=== PATIENT | female | born 1985 | race Caucasian/White ===

== ENCOUNTER → 2017-01-31 | Outpatient (CLI) | payer BC | LOC: MW.CHOBGYN 17:04 | PROVIDERS: ATTEND Obstetrics & Gynecology | DX: Z34.90 Encounter for supervision of normal pregnancy, unspecified, unspecified trimester (principal) | CPT/HCPCS: 87081 ==

== ENCOUNTER 2017-02-11 16:13 | Outpatient (CLI) | payer BC ==
--- NOTE | 2017-02-14 15:09 | US ---
EXAM DATE: 02/11/17 PATIENT'S AGE: 31 Patient: ALEXANDRA CARRILLO Facility: [place], [place] Site . Site : 1985 Study: US OB Pelvis [id number]/24/2017 5:14:57 PM Ordering Physician: Chichi Colón Final Report: INDICATION: Lagging fundal height. LIMITED OBSTETRICAL ULTRASOUND Comparison: No previous comparison studies are currently available. Findings: Dr. Cadet was present during the exam. There is a single, live, intrauterine gestation in cephalic position. cardiac activity is present with a heart rate of 149 BPM. Amniotic fluid volume appears subjectively normal and the amniotic fluid index measures 8.4 cm. measurements show: BPD 9.2 centimeters, 37 weeks 4 days. HC 32.6 centimeters, 37 weeks 1 day. AC 33.1 centimeters, 37 weeks 0 days. FL 7.2 centimeters, 37 weeks 1 day. These measurements are concordant and yield a composite estimated menstrual age of 37 weeks 2 days which corresponds to an JAZZMINE of 03/02/2017. Estimated weight is 3111 grams. Evaluation of biophysical profile shows satisfactory breathing movements, gross body movements, tone, and amniotic fluid for a biophysical profile score of 8/8. IMPRESSION: 1. Single, live, intrauterine gestation in cephalic position with estimated menstrual age of 37 weeks 2 days and JAZZMINE of 03/02/2017. 2. Biophysical profile score is 8/8. KRZYSZTOF YUEN MD [employer] Dictated by Jovanny Yuen MD @ 02/11/2017 7:09:48 PM Dictated by: Jovanny Yuen MD @ 02/11/2017 19:10:49 (Electronic Signature) Report Signed by Proxy and Original Signed Document filed in the Medical Record. [facility]
== END 2017-02-11 17:35 | disposition home or self-care (01) ==
LOC: MW.OBCHECK 16:13 → MW.OB 16:14 → MW.OBCHECK 17:35
PROVIDERS: ATTEND Obstetrics & Gynecology
DX: O36.5930 Maternal care for other known or suspected poor fetal growth, third trimester, not applicable or unspecified (principal); Z34.90 Encounter for supervision of normal pregnancy, unspecified, unspecified trimester
CPT/HCPCS: 59025; 76818; 76818-26; 81003

== ENCOUNTER → 2017-02-11 | Outpatient (CLI) | payer BC | LOC: MW.CHOBGYN 15:39 | PROVIDERS: ATTEND Obstetrics & Gynecology | DX: Z34.90 Encounter for supervision of normal pregnancy, unspecified, unspecified trimester (principal) | CPT/HCPCS: 81003 ==

== ENCOUNTER 2017-02-15 13:35 | Outpatient (CLI) | payer BC | END 2017-02-15 14:55 | disposition home or self-care (01) | LOC: MW.OBCHECK 13:35 → MW.OB 13:37 → MW.OBCHECK 14:55 | PROVIDERS: ATTEND Obstetrics & Gynecology | DX: Z36 Encounter for antenatal screening of mother (principal) | CPT/HCPCS: 59025 ==

== ENCOUNTER 2017-02-18 00:04 | Inpatient (IN) | payer BC ==
[2017-02-18] MEDS ORDERED: Butorphanol 1 MG/ML SDV IVPUSH PRN (00:13)
[2017-02-18] MEDS ORDERED: Nalbuphine 10 MG/1 ML Vial IVPUSH PRN (00:13)
[2017-02-18] MEDS ORDERED: Misoprostol 25 MCG (1/4 of 100 MCG) Tab VAG PRN (00:13)
[2017-02-18] MEDS ORDERED: Methylergonovine 0.2 MG/1 ML Amp IM PRN (00:13)
[2017-02-18] MEDS ORDERED: Lidocaine 1% 50 ML MDV INJECT PRN (00:13)
[2017-02-18] MEDS ORDERED: Sodium Chloride 0.9% 2.5 ML Syringe FLUSH PRN (00:13)
[2017-02-18] MEDS ORDERED: Carboprost Tromethamine 250 MCG/1 ML Amp IM PRN (00:13)
[2017-02-18] MEDS ORDERED: Misoprostol 200 MCG Tab PO PRN (00:13)
[2017-02-18] MEDS ORDERED: Sodium Chloride 0.9% 10 ML Syringe FLUSH PRN (00:13)
[2017-02-18] MEDS ORDERED: Misoprostol 25 MCG (1/4 of 100 MCG) Tab PO PRN (00:13)
[2017-02-18] MEDS ORDERED: Water For Irrigation,Sterile 1,000 ML Container IRR PRN (00:13)
[2017-02-18] MEDS ORDERED: Terbutaline 1 MG/ML SDV SUBCUT PRN (00:13)
[2017-02-18] MEDS ORDERED: Misoprostol 25 MCG (1/4 of 100 MCG) Tab VAG SCH (00:15)
[2017-02-18] MEDS ORDERED: Misoprostol 25 MCG (1/4 of 100 MCG) Tab PO SCH (00:15)
[2017-02-18] MEDS ORDERED: Oxytocin/Lactated Ringers 30 UNIT/500 ML BAG IV SCH ×2 (00:15)
[2017-02-18] MEDS: Lactated Ringers 1,000 ML IV SCH ×4 (01:14→11:17)
--- NOTE | 2017-02-18 07:22 | PCM.LDHP ---
L&D History of Present Illness - General Date of Service: 02/18/17 Admit Problem/Dx: Patient Status Order with Admit Dx/Problem 02/18/17 00:13 Patient Status [ADT] Routine Admission Diagnosis/Problem Admission Diagnosis/Problem - planned 02/18/17 07:10 31 yo G1Po EDC 02/28/2017 38 4/7 wks. O-, RI, GBS neg. 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: Social & Family History - Family History Family Medical History: Noncontributory - Tobacco Use Smoking Status *Q: Never Smoker - Caffeine Use Caffeine Use: Reports: Coffee, Soda - Recreational Drug Use Recreational Drug Use: No H&P Review of Systems - Review of Systems: Review Of Systems: See Below General: Reports: no symptoms HEENT: Reports: no symptoms Pulmonary: Reports: No Symptoms Cardiovascular: Reports: no symptoms Gastrointestinal: Reports: No symptoms Genitourinary: Reports: no symptoms Musculoskeletal: Reports: no symptoms Skin: Reports: no symptoms Psychiatric: Reports: no symptoms Neurological: Reports: No Symptoms Hematologic/Lymphatic: Reports: no symptoms Immunologic: Reports: no symptoms L&D Exam - Exam Exam: See Below - Vital Signs Weight: 71.214 kg - OB Specific Contraction Intensity: Irritability movement: active Estimated Weight: 3200 - Workman Score Workman Score Cervix Position: Posterior Workman Score Consistency: Medium Workman Score Effacement: 51-70% Workman Score Dilation: 1-2 cm Workman Score 's Station: -1 ,0 Workman Score Total: 6 - Exam General: alert, oriented, cooperative HEENT: Hearing intact Lungs: Normal respiratory effort Abdomen: soft Rectal Exam: Deferred Back Exam: full range of motion Skin: warm, dry, intact Psychiatric: alert, normal affect, normal mood - Patient Data Lab Results last 24 hrs: Laboratory Results - last 24 hr 02/18/17 02/18/17 Range/Units 01:07 01:07 WBC 8.71 (4.0-11.0) K/uL RBC 3.25 L (4.30-5.90) M/uL Hgb 9.5 L (12.0-16.0) g/dL Hct 28.8 L (36.0-46.0) % MCV 88.6 (80.0-98.0) fL MCH 29.2 (27.0-32.0) pg MCHC 33.0 (31.0-37.0) g/dL RDW Std Deviation 37.8 (28.0-62.0) fl RDW Coeff of Suyapa 12 (11.0-15.0) % Plt Count 223 (150-400) K/uL MPV 9.20 (7.40-12.00) fL Blood Type O NEGATIVE Antibody Screen POSITIVE Prewarmed Antibody Srcn NEGATIVE Antibody Identification Cancelled Cold Antibody Screen POSITIVE Result Diagrams: 02/18/17 01:07 - Problem List (1) Supervision of normal IUP (intrauterine ) in primigravida SNOMED Code(s): 87216441, 362270037, 632343117, 754512418 ICD Code: Z34.00 - ENCNTR FOR SUPRVSN OF NORMAL FIRST , UNSP TRIMESTER Status: Acute Priority: High Current Visit: Yes Qualifiers: Trimester: third trimester Qualified Code(s): Z34.03 - Encounter for supervision of normal first , third trimester (2) IUGR (intrauterine growth restriction) SNOMED Code(s): 48277585 ICD Code: [id number] - Status: Acute Priority: High Current Visit: Yes Problem List Initiated/Reviewed/Updated: Yes Orders Last 24hrs: Active Orders 24 hr Category Date Time Status Patient Status [ADT] Routine ADT 02/18/17 00:13 Active Bedrest Bathroom Privileges [RC] ASDIRECTED Care 02/18/17 00:13 Active Communication Order [RC] ASDIRECTED Care 02/18/17 00:13 Active Communication Order [RC] ASDIRECTED Care 02/18/17 00:13 Active Communication Order [RC] ASDIRECTED Care 02/18/17 00:13 Active Heart Tones [RC] CONTINUOUS Care 02/18/17 00:13 Active Non Stress Test [RC] PER UNIT ROUTINE Care 02/18/17 00:13 Active May Shower [RC] ASDIRECTED Care 02/18/17 00:13 Active Notify Provider [RC] PRN Care 02/18/17 00:13 Active Notify Provider [RC] PRN Care 02/18/17 00:13 Active Notify Provider [RC] PRN Care 02/18/17 00:13 Active Notify Provider [RC] STAT Care 02/18/17 00:13 Active Oxygen Therapy [RC] ASDIRECTED Care 02/18/17 00:13 Active Up ad Patricia [RC] ASDIRECTED Care 02/18/17 00:13 Active Vaginal Exam [RC] PRN Care 02/18/17 00:13 Active Vital Signs [RC] PER UNIT ROUTINE Care 02/18/17 00:13 Active Butorphanol [Stadol] Med 02/18/17 00:13 Active 1 mg IVPUSH ASDIRECTED PRN Carboprost Tromethamine [Hemabate DS] Med 02/18/17 00:13 Active 250 mcg IM ASDIRECTED PRN Lactated Ringers [Ringers, Lactated] 1,000 ml Med 02/18/17 00:15 Active IV ASDIRECTED Lidocaine 1% [Xylocaine 1%] Med 02/18/17 00:13 Active 50 ml INJECT .ONCE PRN Methylergonovine [Methergine] Med 02/18/17 00:13 Active 0.2 mg IM ASDIRECTED PRN Misoprostol [Cytotec] Med 02/18/17 00:13 Active 200 mcg PO .ONCE PRN Misoprostol [Cytotec] Med 02/18/17 00:15 Active 25 mcg PO .ONCE Misoprostol [Cytotec] Med 02/18/17 00:13 Active 25 mcg PO Q4H PRN Misoprostol [Cytotec] Med 02/18/17 00:15 Active 25 mcg VAG .ONCE Misoprostol [Cytotec] Med 02/18/17 00:13 Active 25 mcg VAG Q4H PRN Nalbuphine [Nubain] Med 02/18/17 00:13 Active 10 mg IVPUSH ASDIRECTED PRN Oxytocin/Lactated Ringers [Pitocin in LR 30 Units/500 Med 02/18/17 00:15 Active ML] 30 unit in 500 ml IV TITRATE Sodium Chloride 0.9% [Saline Flush] Med 02/18/17 00:13 Active 10 ml FLUSH ASDIRECTED PRN Sodium Chloride 0.9% [Saline Flush] Med 02/18/17 00:13 Active 2.5 ml FLUSH ASDIRECTED PRN Terbutaline [Brethine] Med 02/18/17 00:13 Active 0.25 mg SUBCUT ASDIRECTED PRN Water For Irrigation,Sterile [Sterile Water for Med 02/18/17 00:13 Active Irrigation] 1,000 ml IRR ASDIRECTED PRN Scalp Electrode [WOMSER] Per Unit Routine Oth 02/18/17 00:13 Ordered Medication Administration Instruction [OM.PC] Q3H Oth 02/18/17 00:15 Ordered Peripheral IV Insertion Adult [OM.PC] Routine Oth 02/18/17 00:13 Ordered Resuscitation Status Routine Resus Stat 02/18/17 00:13 Ordered Medication Orders Butorphanol Tartrate (Stadol) 1 mg IVPUSH ASDIRECTED PRN PRN Reason: Pain Carboprost Tromethamine (Hemabate Ds) 250 mcg IM ASDIRECTED PRN PRN Reason: Post Hemorrhage Lactated Ringer's (Ringers, Lactated) 1,000 mls @ 150 mls/hr IV ASDIRECTED NATALIE Last Admin: 02/18/17 05:47 Dose: 150 mls/hr Infusion: 02/18/17 05:47 Dose: 150 mls/hr Admin: 02/18/17 01:14 Dose: 150 mls/hr Oxytocin/Lactated Ringer's (Pitocin In Lr 30 Units/500 Ml) 30 unit in 500 mls @ 2 mls/hr IV TITRATE NATALIE; 2 MUNITS/MIN PRN Reason: Protocol Lidocaine HCl (Xylocaine 1%) 50 ml INJECT .ONCE PRN PRN Reason: Laceration repair Methylergonovine Maleate (Methergine) 0.2 mg IM ASDIRECTED PRN PRN Reason: Post Hemorrhage Misoprostol (Cytotec) 200 mcg PO .ONCE PRN PRN Reason: Post Hemorrhage Misoprostol (Cytotec) 25 mcg VAG .ONCE NATALIE Last Admin: 02/18/17 01:30 Dose: 25 mcg Misoprostol (Cytotec) 25 mcg VAG Q4H PRN PRN Reason: Cervical Ripening Stop: 02/19/17 04:14 Last Admin: 02/18/17 05:45 Dose: 25 mcg Misoprostol (Cytotec) 25 mcg PO .ONCE NATALIE Last Admin: 02/18/17 01:30 Dose: 25 mcg Misoprostol (Cytotec) 25 mcg PO Q4H PRN PRN Reason: Cervical Ripening Stop: 02/19/17 04:14 Last Admin: 02/18/17 05:45 Dose: 25 mcg Nalbuphine HCl (Nubain) 10 mg IVPUSH ASDIRECTED PRN PRN Reason: Pain (severe 7-10) Stop: 02/20/17 00:14 Sodium Chloride (Saline Flush) 10 ml FLUSH ASDIRECTED PRN PRN Reason: Keep Vein Open Sodium Chloride (Saline Flush) 2.5 ml FLUSH ASDIRECTED PRN PRN Reason: Keep Vein Open Sterile Water (Sterile Water For Irrigation) 1,000 ml IRR ASDIRECTED PRN PRN Reason: delivery Terbutaline Sulfate (Brethine) 0.25 mg SUBCUT ASDIRECTED PRN PRN Reason: Tacysystole Assessment/Plan Comment:: A:31 yo G1Po EDC 02/28/2017 38 4/7 wks. O-, RI, GBS neg. IOL due to IUGR P: Continue cytotec, pitocin when making cervical change, reg diet for now, May be out of bed 1h after cytotec. Anticipate
[2017-02-18] MEDS ORDERED: Ondansetron 4 MG/2 ML SDV IVPUSH PRN (09:32)
[2017-02-18] MEDS ORDERED: fentaNYL 100 MCG/2 ML SDV ONE (10:43)
[2017-02-18] MEDS ORDERED: Ropivacaine HCl/PF 100 ML ONE (10:44)
[2017-02-18] MEDS ORDERED: Ropivacaine 0.2% 2 MG/ML 20 ML SDV ONE (10:44)
--- NOTE | 2017-02-18 11:41 | PCM.PREANE ---
Preanesthetic Assessment - Anesthesia/Transfusion/Family Hx Anesthesia History: Prior Anesthesia Without Reaction Family History of Anesthesia Reaction: No Transfusion History: No Prior Transfusion(s) - Review of Systems General: No Symptoms Pulmonary: No Symptoms Cardiovascular: No Symptoms Gastrointestinal: No symptoms Neurological: No Symptoms Other: Reports: None - Physical Assessment NPO Status Date: 02/18/17 NPO Status Time: 11:38 Height: 1.68 m Weight: 71.214 kg ASA Class: 2 Mental Status: Alert & Oriented x3 Airway Class: Mallampati = 2 Dentition: Reports: Normal Dentition Thyro-Mental Finger Breadths: 3 Mouth Opening Finger Breadths: 3 ROM/Head Extension: Full Cardiovascular: Regular Rate, Regular Rhythm, No Murmurs (history of childhood murmur. ) - Lab Values: Laboratory Last Values WBC 8.71 K/uL (4.0-11.0) 02/18/17 01:07 RBC 3.25 M/uL (4.30-5.90) L 02/18/17 01:07 Hgb 9.5 g/dL (12.0-16.0) L 02/18/17 01:07 Hct 28.8 % (36.0-46.0) L 02/18/17 01:07 MCV 88.6 fL (80.0-98.0) 02/18/17 01:07 MCH 29.2 pg (27.0-32.0) 02/18/17 01:07 MCHC 33.0 g/dL (31.0-37.0) 02/18/17 01:07 RDW Std Deviation 37.8 fl (28.0-62.0) 02/18/17 01:07 RDW Coeff of Suyapa 12 % (11.0-15.0) 02/18/17 01:07 Plt Count 223 K/uL (150-400) 02/18/17 01:07 MPV 9.20 fL (7.40-12.00) 02/18/17 01:07 Blood Type O NEGATIVE 02/18/17 01:07 Antibody Screen POSITIVE 02/18/17 01:07 Prewarmed Antibody Srcn NEGATIVE 02/18/17 01:07 Antibody Identification Cancelled 02/18/17 01:07 Cold Antibody Screen POSITIVE 02/18/17 01:07 - Allergies Allergies/Adverse Reactions: Allergies Allergy/AdvReac Type Severity Reaction Status Date / Time No Known Allergies Allergy Verified 02/11/17 16:30 - Blood Blood Available: Yes Product(s) Available: PRBC - Acknowledgements Anesthesia Type Planned: Epidural Pt an Appropriate Candidate for the Planned Anesthesia: Yes Alternatives and Risks of Anesthesia Discussed w Pt/Guardian: Yes Pt/Guardian Understands and Agrees with Anesthesia Plan: Yes PreAnesthesia Questionnaire Cardiovascular History: Reports: Heart murmur (history of murmur in childhood, absent at present.) 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 Smoking Status *Q: Never Smoker Recreational Drug Use History: No - CURRENT (IN HOUSE) MEDS Current Meds: Current Medications Butorphanol Tartrate (Stadol) 1 mg IVPUSH ASDIRECTED PRN PRN Reason: Pain Last Admin: 02/18/17 09:43 Dose: 1 mg Carboprost Tromethamine (Hemabate Ds) 250 mcg IM ASDIRECTED PRN PRN Reason: Post Hemorrhage Lactated Ringer's (Ringers, Lactated) 1,000 mls @ 150 mls/hr IV ASDIRECTED NATALIE Last Admin: 02/18/17 11:17 Dose: 150 mls/hr Oxytocin/Lactated Ringer's (Pitocin In Lr 30 Units/500 Ml) 30 unit in 500 mls @ 2 mls/hr IV TITRATE NATALEI; 2 MUNITS/MIN PRN Reason: Protocol Lidocaine HCl (Xylocaine 1%) 50 ml INJECT .ONCE PRN PRN Reason: Laceration repair Methylergonovine Maleate (Methergine) 0.2 mg IM ASDIRECTED PRN PRN Reason: Post Hemorrhage Misoprostol (Cytotec) 200 mcg PO .ONCE PRN PRN Reason: Post Hemorrhage Misoprostol (Cytotec) 25 mcg VAG .ONCE NATALIE Last Admin: 02/18/17 01:30 Dose: 25 mcg Misoprostol (Cytotec) 25 mcg VAG Q4H PRN PRN Reason: Cervical Ripening Stop: 02/19/17 04:14 Last Admin: 02/18/17 05:45 Dose: 25 mcg Misoprostol (Cytotec) 25 mcg PO .ONCE NATALIE Last Admin: 02/18/17 01:30 Dose: 25 mcg Misoprostol (Cytotec) 25 mcg PO Q4H PRN PRN Reason: Cervical Ripening Stop: 02/19/17 04:14 Last Admin: 02/18/17 05:45 Dose: 25 mcg Nalbuphine HCl (Nubain) 10 mg IVPUSH ASDIRECTED PRN PRN Reason: Pain (severe 7-10) Stop: 02/20/17 00:14 Ondansetron HCl (Zofran) 4 - 6 mg IVPUSH Q4H PRN PRN Reason: Nausea/Vomiting Last Admin: 02/18/17 09:52 Dose: 4 mg Sodium Chloride (Saline Flush) 10 ml FLUSH ASDIRECTED PRN PRN Reason: Keep Vein Open Sodium Chloride (Saline Flush) 2.5 ml FLUSH ASDIRECTED PRN PRN Reason: Keep Vein Open Sterile Water (Sterile Water For Irrigation) 1,000 ml IRR ASDIRECTED PRN PRN Reason: delivery Terbutaline Sulfate (Brethine) 0.25 mg SUBCUT ASDIRECTED PRN PRN Reason: Tacysystole Discontinued Medications Fentanyl (Sublimaze) Confirm Administered Dose 300 mcg .ROUTE .STK-MED ONE Stop: 02/18/17 10:44 Oxytocin/Lactated Ringer's (Pitocin In Lr 30 Units/500 Ml) 30 unit in 500 mls @ 999 mls/hr IV ASDIRECTED NATALIE PRN Reason: 999 MUNITS/MIN Stop: 02/18/17 00:46 Ropivacaine (Naropin 0.2%) Confirm Administered Dose 100 mls @ as directed .ROUTE .STK-MED ONE Stop: 02/18/17 10:45 Ropivacaine (Naropin 0.2%) Confirm Administered Dose 20 ml .ROUTE .STK-MED ONE Stop: 02/18/17 10:45 Preanesthetic Assessment - PHYSICAL ASSESSMENT Height: 1.68 m Weight: 71.214 kg - LAB Values: Laboratory Last Values WBC 8.71 K/uL (4.0-11.0) 02/18/17 01:07 RBC 3.25 M/uL (4.30-5.90) L 02/18/17 01:07 Hgb 9.5 g/dL (12.0-16.0) L 02/18/17 01:07 Hct 28.8 % (36.0-46.0) L 02/18/17 01:07 MCV 88.6 fL (80.0-98.0) 02/18/17 01:07 MCH 29.2 pg (27.0-32.0) 02/18/17 01:07 MCHC 33.0 g/dL (31.0-37.0) 02/18/17 01:07 RDW Std Deviation 37.8 fl (28.0-62.0) 02/18/17 01:07 RDW Coeff of Suyapa 12 % (11.0-15.0) 02/18/17 01:07 Plt Count 223 K/uL (150-400) 02/18/17 01:07 MPV 9.20 fL (7.40-12.00) 02/18/17 01:07 Blood Type O NEGATIVE 02/18/17 01:07 Antibody Screen POSITIVE 02/18/17 01:07 Prewarmed Antibody Srcn NEGATIVE 02/18/17 01:07 Antibody Identification Cancelled 02/18/17 01:07 Cold Antibody Screen POSITIVE 02/18/17 01:07 - ALLERGIES Allergies/Adverse Reactions: Allergies Allergy/AdvReac Type Severity Reaction Status Date / Time No Known Allergies Allergy Verified 02/11/17 16:30 - Free Text/Narrative Note: Labor Analgesia/Epidural Procedure start date: 02/18/17 time: 1052 Attending provider aware Chart reviewed Permit signed Labs reviewed VS/FHR reviewed Pt identified/ID band Pt assessed Risks/Benefits discussed and accepted Monitors in place (BP, HR, SPO2) Patient, Site, Procedure Verification, Pause. Pain "10/10" Fluid bolus infused (fluid type and amount): 1500 ml LR currently infusing Position: Sitting @1056 Prep: Betadine X 3 Sterile Drape Intradermal Wheal: 3 ml 1% Lidocaine Regional placement level: L3-4 Needle: 17 g Tuohy Approach: Midline Technique: YESY glass syringe with ml Sterile water YESY needle depth: 4 cm Paresthesia: None Fluid Obtained: None Catheter insertion time: 1101 Catheter depth at skin: 18 cm Test Dose Time: 1102 RX: 3 ml 1.5% lidocaine with 1:200,000 epi Other: Response: Negative Other: Loading dose Time: 1559-9839 RX: 100 mcg fentanyl followed by 5 ml of 0.2% ropivacaine in 1 ml increments over 16 minutes Pt position: semi fowlers with GOVIND Continuous infusion Start Time: 1024 RX: 100 ml 0.2% ropivacaine with 200 mcg fentanyl added Continuous infusion rate: 8 ml per hour 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 ) Procedure end date: 02/18/17 time: 1154
[2017-02-18] MEDS ORDERED: Bisacodyl 10 MG Supp RECTAL PRN (12:59)
[2017-02-18] MEDS ORDERED: Ibuprofen 400 MG Tab PO PRN (12:59)
[2017-02-18] MEDS ORDERED: Benzocaine/Menthol 20%-0.5% Spray 78 GM Cannister TOP PRN (12:59)
[2017-02-18] MEDS ORDERED: Witch Hazel Medicated Pads 40/Jar TOP PRN (12:59)
[2017-02-18] MEDS ORDERED: oxyCODONE 5 MG Tab PO PRN (12:59)
[2017-02-18] MEDS ORDERED: Lanolin 100% Cream 7 GM Tube TOP PRN (12:59)
[2017-02-18] MEDS ORDERED: Acetaminophen 500 MG Tab PO PRN ×2 (12:59)
[2017-02-18] MEDS ORDERED: Docusate Sodium 100 MG Cap PO PRN (12:59)
[2017-02-18] MEDS: Ibuprofen 800 MG Tab PO PRN (18:04)
--- NOTE | 2017-02-18 19:21 | OR ---
SURGEON: Eldon Cadet MD DATE OF PROCEDURE: DELIVERY NOTE: Ms. Lambert is a 31-year-old patient, primigravida. She is followed in our clinic primarily by me in this . The patient late in her care. I started noticing some fundal lag. The patient had repeated NST, which were all reactive. However, there was a questionable the decrease of amniotic fluid, because the patient is 40 and plus 3 we discussed option and we elected to admit the patient for induction. The patient was admitted and she was induced with Cytotec, which she tolerated very well. She progressed rather rapidly. After two doses of Cytotec, she went from 1 cm to 4 cm with bulging bag of water and then she had epidural anesthesia and shortly after her epidural she went to complete to complete with bulging bag of water. When I ruptured her amniotic bag, there was clear fluid, however, there was a very small amount of fluid that leaked with it. The patient was able to push and accomplish normal spontaneous vaginal delivery of a male fetus. score is reported to be 8 and 9. The weight is not available. The placenta delivered spontaneous, complete, and intact, and there was first-degree laceration repaired with a 4-0 Vicryl without any problem. Estimated blood loss was 250 to 300 mL. heart rate was category one through the entire process of labor. There was no complication in this . AUDREY / JAME /[id number]
[2017-02-19] MEDS: Ibuprofen 800 MG Tab PO PRN (07:58)
[2017-02-19 08:14] VITALS: BP 116/69
--- NOTE | 2017-02-19 08:22 | PCM.DCSUM1 ---
Discharge Summary - Hospital Course Free Text/Narrative:: Discharge home with . Follow up 6 weeks for post or sooner if needed. - Discharge Data Discharge Date: 02/19/17 Discharge Disposition: Home, Self-Care 01 Condition: Good - Discharge Diagnosis/Problem(s) (1) Supervision of normal IUP (intrauterine ) in primigravida SNOMED Code(s): 89612349, 752415944, 682431402, 016345437 ICD Code: Z34.00 - ENCNTR FOR SUPRVSN OF NORMAL FIRST , UNSP TRIMESTER Status: Acute Priority: High Current Visit: Yes Qualifiers: Trimester: third trimester Qualified Code(s): Z34.03 - Encounter for supervision of normal first , third trimester (2) IUGR (intrauterine growth restriction) SNOMED Code(s): 75228533 ICD Code: [id number] - Status: Acute Priority: High Current Visit: Yes (3) (normal spontaneous vaginal delivery) SNOMED Code(s): 55164607 ICD Code: O80 - ENCOUNTER FOR FULL-TERM UNCOMPLICATED DELIVERY Status: Acute Priority: Medium Current Visit: Yes - Patient Instructions Diet: Usual Diet as Tolerated Activity: As Tolerated Driving: Do Not Drive Showering/Bathing: May Shower Notify Provider of: Fever, Increased Pain, Swelling and Redness, Nausea and/or Vomiting - Discharge Plan - Discharge Summary/Plan Comment Discharge Summary/Plan Comment: Discharge home with . Follow up 6 weeks for post or sooner if needed. - General Info Date of Service: 02/19/17 Admission Dx/Problem (Free Text: Patient Status Order with Admit Dx/Problem 02/18/17 00:13 Patient Status [ADT] Routine Admission Diagnosis/Problem Admission Diagnosis/Problem - planned 02/18/17 07:10 31 yo G1Po EDC 02/28/2017 38 4/7 wks. O-, RI, GBS neg. IOL due to IUGR Functional Status: Reports: pain controlled, tolerating diet, ambulating, urinating - Review of Systems General: Reports: No Symptoms HEENT: Reports: no symptoms Pulmonary: Reports: no symptoms Cardiovascular: Reports: No Symptoms Gastrointestinal: Reports: No symptoms Genitourinary: Reports: no symptoms Musculoskeletal: Reports: no symptoms Skin: Reports: no symptoms Neurological: Reports: No Symptoms Psychiatric: Reports: no symptoms - Patient Data Vitals - Most Recent: Last Vital Signs Temp 37.0 C 02/19/17 08:00 Pulse 97 02/19/17 08:00 Resp 16 02/19/17 08:00 BP 116/69 02/19/17 08:00 Pulse Ox 98 02/19/17 08:00 Weight - Most Recent: 71.214 kg Lab Results - Last 24 hrs: Laboratory Results - last 24 hr 02/19/17 Range/Units 05:05 Hgb 10.2 L (12.0-16.0) g/dL Hct 30.9 L (36.0-46.0) % Med Orders - Current: Current Medications Acetaminophen (Tylenol Extra Strength) 500 mg PO Q4H PRN PRN Reason: Pain Acetaminophen (Tylenol Extra Strength) 1,000 mg PO Q4H PRN PRN Reason: Pain Last Admin: 02/18/17 22:15 Dose: 1,000 mg Benzocaine/Menthol (Dermoplast Pain Relief 20%-0.5% [place]) 78 gm TOP ASDIRECTED PRN PRN Reason: Perineal Comfort Measure Bisacodyl (Dulcolax) 10 mg RECTAL .ONCE PRN PRN Reason: Constipation Butorphanol Tartrate (Stadol) 1 mg IVPUSH ASDIRECTED PRN PRN Reason: Pain Last Admin: 02/18/17 09:43 Dose: 1 mg Carboprost Tromethamine (Hemabate Ds) 250 mcg IM ASDIRECTED PRN PRN Reason: Post Hemorrhage Docusate Sodium (Colace) 100 mg PO BID PRN PRN Reason: Constipation Emollient Ointment (Lansinoh Hpa) 0 gm TOP ASDIRECTED PRN PRN Reason: Sore Nipples Lactated Ringer's (Ringers, Lactated) 1,000 mls @ 150 mls/hr IV ASDIRECTED NATALIE Last Admin: 02/18/17 11:17 Dose: 150 mls/hr Oxytocin/Lactated Ringer's (Pitocin In Lr 30 Units/500 Ml) 30 unit in 500 mls @ 2 mls/hr IV TITRATE NATALIE; 2 MUNITS/MIN PRN Reason: Protocol Ibuprofen (Motrin) 400 mg PO Q4H PRN PRN Reason: Pain Ibuprofen (Motrin) 800 mg PO Q6H PRN PRN Reason: Pain Last Admin: 02/19/17 07:58 Dose: 800 mg Lidocaine HCl (Xylocaine 1%) 50 ml INJECT .ONCE PRN PRN Reason: Laceration repair Last Admin: 02/18/17 12:30 Dose: 50 ml Methylergonovine Maleate (Methergine) 0.2 mg IM ASDIRECTED PRN PRN Reason: Post Hemorrhage Misoprostol (Cytotec) 200 mcg PO .ONCE PRN PRN Reason: Post Hemorrhage Misoprostol (Cytotec) 25 mcg VAG .ONCE NATALIE Last Admin: 02/18/17 01:30 Dose: 25 mcg Misoprostol (Cytotec) 25 mcg PO .ONCE NATALIE Last Admin: 02/18/17 01:30 Dose: 25 mcg Nalbuphine HCl (Nubain) 10 mg IVPUSH ASDIRECTED PRN PRN Reason: Pain (severe 7-10) Stop: 02/20/17 00:14 Ondansetron HCl (Zofran) 4 - 6 mg IVPUSH Q4H PRN PRN Reason: Nausea/Vomiting Last Admin: 02/18/17 09:52 Dose: 4 mg Oxycodone HCl (Oxycodone) 5 mg PO Q2H PRN PRN Reason: Pain Sodium Chloride (Saline Flush) 10 ml FLUSH ASDIRECTED PRN PRN Reason: Keep Vein Open Sodium Chloride (Saline Flush) 2.5 ml FLUSH ASDIRECTED PRN PRN Reason: Keep Vein Open Sterile Water (Sterile Water For Irrigation) 1,000 ml IRR ASDIRECTED PRN PRN Reason: delivery Last Admin: 02/18/17 12:30 Dose: 1,000 ml Terbutaline Sulfate (Brethine) 0.25 mg SUBCUT ASDIRECTED PRN PRN Reason: Tacysystole [place] (Tucks) 1 pad TOP ASDIRECTED PRN PRN Reason: comfort care Discontinued Medications Fentanyl (Sublimaze) Confirm Administered Dose 300 mcg .ROUTE .STK-MED ONE Stop: 02/18/17 10:44 Oxytocin/Lactated Ringer's (Pitocin In Lr 30 Units/500 Ml) 30 unit in 500 mls @ 999 mls/hr IV ASDIRECTED NATALIE PRN Reason: 999 MUNITS/MIN Stop: 02/18/17 00:46 Ropivacaine (Naropin 0.2%) Confirm Administered Dose 100 mls @ as directed .ROUTE .STK-MED ONE Stop: 02/18/17 10:45 Misoprostol (Cytotec) 25 mcg VAG Q4H PRN PRN Reason: Cervical Ripening Stop: 02/19/17 04:14 Last Admin: 02/18/17 05:45 Dose: 25 mcg Misoprostol (Cytotec) 25 mcg PO Q4H PRN PRN Reason: Cervical Ripening Stop: 02/19/17 04:14 Last Admin: 02/18/17 05:45 Dose: 25 mcg Ropivacaine (Naropin 0.2%) Confirm Administered Dose 20 ml .ROUTE .STK-MED ONE Stop: 02/18/17 10:45 - Exam General: Reports: alert, oriented, cooperative, no acute distress Lungs: Reports: Normal respiratory effort Abdomen: Reports: soft, no tenderness, no distension (Female) Exam: Vaginal bleeding Rectal (Female) Exam: Deferred Back Exam: Reports: full range of motion Extremities: Reports: no edema, normal pulses Skin: Reports: warm, dry, intact Wound/Incisions: Reports: healing well Neurological: Reports: no new focal deficit Psy/Mental Status: Reports: alert, normal affect, normal mood *Q Meaningful Use (DIS) - VTE *Q VTE Criteria *Q: - Stroke *Q Stroke Criteria *Q: - AMI *Q AMI Criteria *Q:
--- NOTE | 2017-02-19 10:21 | PCM48HPAN ---
Post Anesthesia Note - EVALUATION WITHIN 48HRS OF ANESTHETIC Vital Signs in Normal Range: Yes Patient Participated in Evaluation: Yes Respiratory Function Stable: Yes Airway Patent: Yes Cardiovascular Function Stable: Yes Hydration Status Stable: Yes Pain Control Satisfactory: Yes Nausea and Vomiting Control Satisfactory: Yes Mental Status Recovered: Yes
== END 2017-02-19 15:20 | disposition home or self-care (01) | DRG 560 ==
LOC: MW.OBCHECK 00:04 → MW.OB 00:05 → MW.OBCHECK 00:13 → MW.OB 00:13 → OBSVTOIN 12:30 → MW.OB 16:21
PROVIDERS: ADMIT Obstetrics & Gynecology; ATTEND Obstetrics & Gynecology
PROC: 10E0XZZ Delivery of Products of Conception, External Approach (ICD-10-PCS; principal; 2017-02-18)
PROC: 0HQ9XZZ Repair Perineum Skin, External Approach (ICD-10-PCS; 2017-02-18)
PROC: 3E0P7GC Introduction of Other Therapeutic Substance into Female Reproductive, Via Natural or Artificial Opening (ICD-10-PCS; 2017-02-18)
PROC: 10907ZC Drainage of Amniotic Fluid, Therapeutic from Products of Conception, Via Natural or Artificial Opening (ICD-10-PCS; 2017-02-18)
DX: O36.5930 Maternal care for other known or suspected poor fetal growth, third trimester, not applicable or unspecified (principal); O70.0 First degree perineal laceration during delivery; Z3A.38 38 weeks gestation of pregnancy; Z37.0 Single live birth
CPT/HCPCS: 01967; 36415; 59025; 85014; 85018; 85027; 86156; 86850; 86900; 86901; A9270-GY; J0595; J2405; J2795; J3010; J7120